=== PATIENT | female | born 1990 | race Caucasian/White ===

== ENCOUNTER 2020-04-20 02:15 | Emergency (ER) | payer OTHER ==
[~2020-04-20] VITALS: Ht 165.1 cm; Wt 55.8 kg
--- NOTE | 2020-04-20 02:25 | NUR ---
Patient walked into ER c/o left flank pain radiating to LLQ abdominal area with nausea that started 1hr [employer].
--- NOTE | 2020-04-20 02:45 | NUR ---
Dr. Weller at bedside for MSE.
[2020-04-20] MEDS ORDERED: HYDROMORPHONE 1 MG/1 ML DISP.SYRIN IV ONE (03:00)
[2020-04-20] MEDS ORDERED: KETOROLAC TROMETHAMINE 15 MG INJ IVP ONE (03:00)
[2020-04-20] MEDS ORDERED: IV NORMAL SALINE 1000 ML BAG IV ONE (03:00)
[2020-04-20] MEDS ORDERED: HYDROMORPHONE 1 MG/1 ML DISP.SYRIN ONE (03:02)
[2020-04-20] MEDS ORDERED: KETOROLAC TROMETHAMINE 15 MG INJ ONE (03:02)
[2020-04-20] MEDS ORDERED: diphenhydrAMINE 50 MG/1 ML VIAL IV ONE (03:15)
[2020-04-20 03:17] LABS: BASOPHILS % (AUTO) 0.5 % (0.0-2.0); EOSINOPHILS # (AUTO) 0.2 K/uL (0.0-0.7); EOSINOPHILS % (AUTO) 2.6 % (0.0-7.0); HEMATOCRIT 41.9 % (31.2-41.9); HEMOGLOBIN 14.4 g/dL (10.9-14.3); LYMPHOCYTES # (AUTO) 3.7 K/uL (20.0-40.0); LYMPHOCYTES % (AUTO) 45.2 % (20.5-51.5); MEAN CORPUSCULAR HEMOGLOBIN 30.3 uug (24.7-32.8); MEAN CORPUSCULAR HGB CONC 34 g/dL (32.3-35.6); MONOCYTES # (AUTO) 0.6 K/uL (2.0-10.0); MONOCYTES % (AUTO) 6.8 % (0.0-11.0); NEUTROPHILS # (AUTO) 3.7 K/uL (1.8-8.9); NEUTROPHILS % (AUTO) 44.9 % (38.5-71.5); PLATELET COUNT (AUTO) 191 K/uL (179-408); RED BLOOD CELL COUNT(AUTO) 4.76 MIL/uL (3.63-4.92); WHITE BLOOD COUNT (AUTO) 8.2 K/uL (3.8-11.8)
[2020-04-20] MEDS ORDERED: diphenhydrAMINE 50 MG/1 ML VIAL ONE (03:26)
[2020-04-20 03:28] LABS: ALANINE AMINOTRANSFERASE 22 U/L (14-59); ALKALINE PHOSPHATASE 68 U/L (50-136); ASPARTATE AMINOTRANSFERASE 53 U/L (15-37); BILIRUBIN,TOTAL 0.4 mg/dL (0.2-1.0); CARBON DIOXIDE 26 mmol/L (21-32); CHLORIDE 101 mmol/L (98-107); GLUCOSE 93 mg/dL (74-106); TOTAL PROTEIN, SERUM 7.7 g/dL (6.4-8.2); UREA NITROGEN, BLOOD 12 mg/dL (7-18)
--- NOTE | 2020-04-20 04:08 | NUR ---
Patient discharged to home in stable condition. Written and verbal after care instructions given. Patient verbalizes understanding of instructions. Stressed follow up or return to ER for worsening s/s. Pt ambulated out of the ER with steady gait. All belongings with pt.
[2020-04-20 04:09] VITALS: BP 120/64
== END 2020-04-20 04:08 | disposition home or self-care (01) ==
LOC: ER 02:23
DX: N23 Unspecified renal colic (principal); Z87.442 Personal history of urinary calculi
CPT/HCPCS: 36415; 80053; 84702; 85025; 96374; 96375; 99284; J1170; J1200; J1885; A4663; J7030

== ENCOUNTER 2020-12-31 04:37 | Emergency (ER) | payer OTHER ==
[~2020-12-31] VITALS: Ht 162.6 cm; Wt 54.0 kg
--- NOTE | 2020-12-31 04:50 | NUR ---
Dr. Acosta at bedside for MSE.
[2020-12-31] MEDS ORDERED: ONDANSETRON 4 MG/2 ML VIAL IV ONE (05:00)
[2020-12-31] MEDS ORDERED: DEXAMETHASONE SOD PHOSPHATE 4 MG INJ IV ONE (05:00)
[2020-12-31] MEDS ORDERED: IV LACTATED RINGERS SOLUTION 1,000 ML IV PRN (05:00)
[2020-12-31] MEDS ORDERED: DEXAMETHASONE SOD PHOSPHATE 10 MG INJ ONE (05:14)
[2020-12-31] MEDS ORDERED: ONDANSETRON 4 MG/2 ML VIAL ONE (05:14)
[2020-12-31 05:23] LABS: MEAN CORPUSCULAR HEMOGLOBIN 30.2 uug (24.7-32.8); MEAN CORPUSCULAR VOLUME 88.3 fL (75.5-95.3); PLATELET COUNT (AUTO) 169 K/uL (179-408)
[2020-12-31 05:30] LABS: CREATININE 0.7 mg/dL (0.6-1.3); POTASSIUM 3.8 mmol/L (3.5-5.1)
[2020-12-31] MEDS ORDERED: ONDA4TAB5 PO (05:54)
[2020-12-31] MEDS ORDERED: LORAZEPAM 2 MG/1 ML VIAL IV ONE (06:00)
[2020-12-31] MEDS ORDERED: LORAZEPAM 2 MG/1 ML VIAL ONE (06:06)
--- NOTE | 2020-12-31 06:08 | NUR ---
Patient discharged to home in stable condition. Written and verbal after care instructions given. Patient verbalizes understanding of instructions. Stressed follow up or return to ER for worsening s/s. Patient out of ER with steady gait, no acute signs of distress, VSS, all belongings taken, IV discontinued, to be driven home by friend via private vehicle.
[2020-12-31 06:09] VITALS: BP 132/76
== END 2020-12-31 06:09 | disposition home or self-care (01) ==
LOC: ER 04:39
DX: R11.2 Nausea with vomiting, unspecified (principal); Z91.041 Radiographic dye allergy status
CPT/HCPCS: 36415; 80048; 85025; 96361; 96374; 96375; 99284; J1100; J2060; J2405; J7120; A4663; J7030

== ENCOUNTER 2021-04-02 12:37 | Emergency (ER) | payer OTHER ==
[~2021-04-02] VITALS: Ht 162.6 cm; Wt 56.2 kg
[~2021-04-02 12:37] MED LIST: ONDA4TAB5 PO
--- NOTE | 2021-04-02 13:00 | NUR ---
[email or web address], medical screening exam in progress
[2021-04-02 13:28] LABS: HEMATOCRIT 40.9 % (31.2-41.9); MEAN CORPUSCULAR HEMOGLOBIN 30.1 uug (24.7-32.8); MEAN CORPUSCULAR VOLUME 90.7 fL (75.5-95.3); PLATELET COUNT (AUTO) 178 K/uL (179-408)
[2021-04-02 13:37] LABS: *BILIRUBIN,URIN NEGATIVE (NEGATIVE); *BLOOD, URINE 2+ (NEGATIVE); *COLOR,URINE YELLOW (YELLOW); *KETONES,URINE NEGATIVE (NEGATIVE); *UROBILINOGEN,URINE 0.2 E.U./dl (NORMAL); LEUKOCYTE ESTERASE ,URINE NEGATIVE (NEGATIVE); NITRITE, URINE NEGATIVE (NEGATIVE); PH,URINE 7.5 (5.0-8.0); UGLUCOSE NEGATIVE (NEGATIVE)
[2021-04-02 13:39] LABS: ALANINE AMINOTRANSFERASE < 6 U/L (14-59); ALKALINE PHOSPHATASE 79 U/L (50-136); ASPARTATE AMINOTRANSFERASE 48 U/L (15-37); BILIRUBIN,DIRECT < 0.1 mg/dL (0.0-0.2); BILIRUBIN,TOTAL 0.4 mg/dL (0.2-1.0); CARBON DIOXIDE 33 mmol/L (21-32); CHLORIDE 103 mmol/L (98-107); CREATININE 0.7 mg/dL (0.6-1.3); GLUCOSE 86 mg/dL (74-106); LIPASE 170 U/L (73-393); POTASSIUM 4.8 mmol/L (3.5-5.1); TOTAL PROTEIN, SERUM 7.7 g/dL (6.4-8.2); UREA NITROGEN, BLOOD 15 mg/dL (7-18)
--- NOTE | 2021-04-02 13:57 | NUR ---
Patient was unable to provide stool sample. MD is aware. Patient discharged to home in stable condition. Written and verbal after care instructions given. Patient verbalized understanding and compliance of instructions. Stressed follow up with primary doctor/internal medicine and GI doctor or return to ER for worsening s/s.
[2021-04-02 16:54] LABS: *CLARITY,URINE SLIGHTLY HAZY (CLEAR); BACTERIA,URINE FEW /HPF (NONE SEEN); SQUAMOUS EPITHELIAL CELL,UR MODERATE /HPF (NONE SEEN); URINE AMORPHOUS PHOSPHATES FEW /HPF
== END 2021-04-02 13:57 | disposition home or self-care (01) ==
LOC: ER 12:37
DX: R14.0 Abdominal distension (gaseous) (principal); R07.89 Other chest pain; Z79.899 Other long term (current) drug therapy; Z88.8 Allergy status to other drugs, medicaments and biological substances
CPT/HCPCS: 36415; 71045; 83690; 85025; 93005; A4663

== ENCOUNTER 2022-09-24 15:58 | Emergency (ER) | payer OTHER ==
[~2022-09-24] VITALS: Ht 160 cm; Wt 56.2 kg
[2022-09-24] MEDS ORDERED: LIDOCAINE HCL 2% 20 ML VIAL ONE (16:00)
[2022-09-24] MEDS ORDERED: NEOMY/BACITRA/POLYMYXIN B OINT UD PACKET TP ONE (16:30)
[2022-09-24] MEDS ORDERED: LIDOCAINE 1%-EPI 1:100,000 20 ML VIAL ONE (16:37)
[2022-09-24] MEDS ORDERED: ACETAMINOPHEN 325 MG TABLET PO ONE (17:30)
[2022-09-24] MEDS ORDERED: KETOROLAC TROMETHAMINE 15 MG INJ IM ONE (17:30)
[2022-09-24] MEDS ORDERED: KETOROLAC TROMETHAMINE 15 MG INJ ONE (17:32)
[2022-09-24] MEDS ORDERED: ACETAMINOPHEN 325 MG TABLET ONE (17:37)
[2022-09-24] MEDS ORDERED: LIDOCAINE 1%-EPI 1:100,000 20 ML VIAL IJ ONE (17:45)
[2022-09-24] MEDS ORDERED: LIDOCAINE HCL 2% 20 ML VIAL IJ ONE (17:45)
[2022-09-24] MEDS ORDERED: IBUP-1955 PO (17:53)
[2022-09-24 18:03] VITALS: BP 128/67; O2SAT 99
[2022-09-26] MEDS ORDERED: OXYC5TAB3 PO ×2 (16:51→17:11)
== END 2022-09-24 18:03 | disposition home or self-care (01) ==
LOC: MERGE 15:58 → ER 15:58 → EDBD 15:58 → ER 18:03
DX: S61.312A Laceration without foreign body of right middle finger with damage to nail, initial encounter (principal); S61.314A Laceration without foreign body of right ring finger with damage to nail, initial encounter; S61.316A Laceration without foreign body of right little finger with damage to nail, initial encounter; Z88.8 Allergy status to other drugs, medicaments and biological substances; Z79.899 Other long term (current) drug therapy; W26.8XXA Contact with other sharp object(s), not elsewhere classified, initial encounter; Y93.89 Activity, other specified; Y92.89 Other specified places as the place of occurrence of the external cause; Y99.8 Other external cause status
CPT/HCPCS: 12002; 73130; 99283; J1885; J3490; A4663